=== PATIENT | male | born 1955 | race Caucasian/White ===

== ENCOUNTER 2025-08-14 12:57 | Emergency (ER) | payer MEDICARE | END 2025-08-14 13:35 | disposition home or self-care (01) | LOC: BURERS 12:57 | DX: S86.911A Strain of unspecified muscle(s) and tendon(s) at lower leg level, right leg, initial encounter (principal); I48.91 Unspecified atrial fibrillation; I10 Essential (primary) hypertension; Z79.01 Long term (current) use of anticoagulants; X58.XXXA Exposure to other specified factors, initial encounter ==